=== PATIENT | female | born 1990 | race Caucasian/White ===

== ENCOUNTER 2019-04-07 14:12 | Emergency (ER) | payer MEDICAID ==
[2019-04-07 14:17] VITALS: RESP 18
[2019-04-07] MEDS ORDERED: Naproxen 550 mg Tab PO STA (15:03)
[2019-04-07] MEDS ORDERED: Naproxen 550 mg Tab PO ONE (15:10)
--- NOTE | 2019-04-07 15:39 | RAD ---
Date of service: 04/07/2019 PROCEDURE: Right Wrist Radiographs. HISTORY: rt wrist pain x 2wks COMPARISON: None. TECHNIQUE: 4 views obtained. FINDINGS: BONES: Bone alignment and mineralization are normal. There is no acute displaced fracture or bone destruction. JOINTS: Normal. No dislocation. SOFT TISSUES: Normal. OTHER FINDINGS: None. IMPRESSION: No acute displaced fracture or dislocation.
[2019-04-07 16:31] VITALS: BP 106/69; PULSE 70; TEMP 98.6; O2SAT 99
--- NOTE | 2019-04-07 16:46 | C.PDOC ---
History Of Present Illness 29 year old female presents to the emergency department with complaints of right wrist pain and swelling for the last 3 weeks. Patient states that she originally saw her PMD when she noticed the pain and was prescribed Tylenol. She has not noticed much improvement since onset. Patient denies trauma and weakness to the are but reports numbness and tingling to the 3rd and 4th digit. Time Seen by Provider: 04/07/19 14:45 Chief Complaint (Nursing): Upper Extremity Problem/Injury History Per: Patient History/Exam Limitations: no limitations Onset/Duration Of Symptoms: Worse Since, Other (3 weeks) Current Symptoms Are (Timing): Worse Quality: "Pain", Other (swelling, tingling, numbness) Past Medical History Reviewed: Historical Data, Nursing Documentation, Vital Signs Vital Signs: Last Vital Signs Temp 98.6 F 04/07/19 16:30 Pulse 70 04/07/19 16:30 Resp 18 04/07/19 16:30 BP 106/69 04/07/19 16:30 Pulse Ox 99 04/07/19 16:30 Primary Care Provider: Michael Tanner - Medical History PMH: No Chronic Diseases Surgical History: (x1 ) Family History: States: No Known Family Hx - Social History Hx Alcohol Use: No Hx Substance Use: No Review Of Systems Constitutional: Negative for: Fever, Chills, Weakness Cardiovascular: Negative for: Chest Pain Respiratory: Negative for: Cough, Shortness of Breath Gastrointestinal: Negative for: Nausea, Vomiting, Abdominal Pain, Diarrhea Musculoskeletal: Positive for: Hand Pain (right wrist ) Neurological: Positive for: Numbness. Negative for: Weakness Physical Exam - Physical Exam Appears: Non-toxic, No Acute Distress Skin: Warm, Dry, No Ecchymosis, No Other (erythema) Head: Atraumatic, Normacephalic Eye(s): bilateral: Normal Inspection Neck: Normal, Supple Chest: Symmetrical, No Tenderness Cardiovascular: Rhythm Regular Respiratory: Normal Breath Sounds, No Accessory Muscle Use Extremity: Normal ROM (Full ROM to the right wrist and 3rd+4th digit), Tenderness (slight tenderness to palpation at the right wrist), Capillary Refill <2 Sec, Swelling (slight edema noted laterally to the right wrist) Pulses: Left Radial: Normal, Right Radial: Normal Neurological/Psych: Oriented x3, Normal Speech, Normal Cognition, Normal Motor, Normal Sensation Gait: Steady ED Course And Treatment O2 Sat by Pulse Oximetry: 99 (RA) Pulse Ox Interpretation: Normal - Other Rad right wrist X-Ray: Viewed By Me, Read By Radiologist Interpretation: Accession No. : [id number]. Patient Name / ID : AKBAR LOUIE / [id number]. Exam Date : 04/07/2019 15:04:16 ( Approved ). Study Comment : Sex / Age : F / 29Y. Creator : Kanwal Escalona MD. Dictator : Kanwal Escalona MD. Chief Technologist : Corporate Statistical Financial Analyst : Kanwal Escalona MD. Approver2 : Report Date : 04/07/2019 15:35:24. My Comment : . Date of service: 04/07/2019. PROCEDURE: Right Wrist Radiographs. . HISTORY: rt wrist pain x 2wks. COMPARISON: None. TECHNIQUE: 4 views obtained. FINDINGS: BONES: Bone alignment and mineralization are normal. There is no acute displaced fracture or bone destruction. JOINTS: Normal. No dislocation. SOFT TISSUES: Normal. OTHER FINDINGS: None. IMPRESSION: No acute displaced fracture or dislocation. Medical Decision Making Medical Decision Making: Plan: Naproxen 550mg PO XR Right Wrist ordered and reviewed- unremarkable Wrist brace given and advised to follow up with PMD for MRI patient verbalized understanding and is stable for discharge Disposition Counseled Patient/Family Regarding: Studies Performed, Diagnosis, Need For Followup, Rx Given - Disposition Referrals: Ashlee Murray MD [Staff Provider] - Disposition: HOME/ ROUTINE Disposition Time: 16:43 Condition: IMPROVED Additional Instructions: Continue Meds as prescribed Rest, ice, Compression, and Elevation Follow up with PMD if pain still persist for possible MRI Return to the ED if symptoms worsen Prescriptions: Naproxen [Naprosyn] 500 mg PO BID #30 tablet Instructions: Wrist Sprain (DC), Common Wrist Injuries (DC) Forms: [employer] (Yi) - Clinical Impression Clinical Impression: Right wrist pain - PA / [employer] / Resident Statement MD/DO has reviewed & agrees with the documentation as recorded. - Scribe Statement The provider has reviewed the documentation as recorded by the Scribe (Blair Mackay) All medical record entries made by the Scribe were at my direction and pe rsonally dictated by me. I have reviewed the chart and agree that the record accurately reflects my personal performance of the history, physical exam, medical decision making, and the department course for this patient. I have also personally directed, reviewed, and agree with the discharge instructions and disposition.
== END 2019-04-07 16:54 | disposition home or self-care (01) ==
LOC: C.ER 14:12
DX: M25.531 Pain in right wrist (principal)